=== PATIENT | male | born 1985 | race African-American/Black ===

== ENCOUNTER 2024-06-17 16:29 | Emergency (ER) | payer OTHER ==
[~2024-06-17] VITALS: Ht 185.4 cm; Wt 120.4 kg
[2024-06-17 16:30] VITALS: TEMP 98.5
[2024-06-17 17:21] LABS: BASO % 0.5 % (0.0-1.0); EOS # 0.1 10^3/uL (0.0-0.5); EOS % 1.8 % (0.0-3.0); HEMATOCRIT 39.2 % (42.0-52.0); HEMOGLOBIN 13.6 g/dl (13.5-17.5); LYMPH # 2.4 10^3/uL (1.5-5.0); LYMPH % 55.4 % (24.0-44.0); MEAN CORPUSCULAR HEMOGLOBIN 29.4 pg (27.0-33.0); MEAN CORPUSCULAR HGB CONC 34.7 g/dl (32.0-36.5); MEAN CORPUSCULAR VOLUME 84.7 fl (80.0-96.0); MONO # 0.4 10^3/uL (0.0-0.8); MONO % 9.4 % (2.0-8.0); NEUTROPHILS # 1.4 10^3/uL (1.5-8.5); NEUTROPHILS % 32.7 % (36.0-66.0); PLATELET COUNT, AUTOMATED 231 10^3/uL (150-450); RED BLOOD COUNT 4.63 10^6/uL (4.30-6.10); WHITE BLOOD COUNT 4.4 10^3/uL (4.0-10.0)
[2024-06-17 17:42] LABS: INR 1.02; PARTIAL THROMBOPLASTIN TIME 26.3 SECONDS (24.8-34.2); PROTHROMBIN TIME 13.1 SECONDS (12.5-14.5)
[2024-06-17 17:47] LABS: CK-MB VALUE MASS < 1.0 NG/ML (<3.6)
[2024-06-17 17:48] LABS: CPK CREATINE PHOSPHOKINASE 289 U/L (46-171); MB/CK RELATIVE INDEX 0.34 (< OR =4)
[2024-06-17 17:49] LABS: BLOOD UREA NITROGEN 14 MG/DL (9-23); CALCIUM LEVEL 9.3 MG/DL (8.5-10.1); CARBON DIOXIDE LEVEL 27 MMOL/L (20-31); CHLORIDE LEVEL 109 MMOL/L (98-107); CREATININE FOR GFR 1.17 MG/DL (0.70-1.30); GLOMERULAR FILTRATION RATE > 60.0 (>60); GLUCOSE, FASTING 88 MG/DL (60-100); SODIUM LEVEL 142 MMOL/L (136-145)
[2024-06-17 18:51] LABS: CK-MB VALUE MASS < 1.0 NG/ML (<3.6)
[2024-06-17 18:54] LABS: CPK CREATINE PHOSPHOKINASE 283 U/L (46-171); MB/CK RELATIVE INDEX 0.35 (< OR =4)
[2024-06-17 22:15] VITALS: BP 119/72; O2SAT 100
== END 2024-06-17 22:43 | disposition home or self-care (01) ==
LOC: M ED 16:29
DX: R07.89 Other chest pain (principal); R20.2 Paresthesia of skin; R00.8 Other abnormalities of heart beat; F10.10 Alcohol abuse, uncomplicated

== ENCOUNTER 2024-12-28 02:39 | Emergency (ER) | payer OTHER ==
[~2024-12-28] VITALS: Ht 185.4 cm; Wt 104.3 kg
[2024-12-28] MEDS ORDERED: ENTR1TAB PO (02:55)
[2024-12-28] MEDS ORDERED: CRES40TA PO (02:55)
[2024-12-28] MEDS ORDERED: JARD1TAB PO (02:55)
[2024-12-28 03:16] LABS: BASO % 0.5 % (0.0-1.0); EOS # 0.1 10^3/uL (0.0-0.5); EOS % 1.2 % (0.0-3.0); HEMATOCRIT 38.7 % (42.0-52.0); HEMOGLOBIN 13.1 g/dl (13.5-17.5); LYMPH # 2.3 10^3/uL (1.5-5.0); LYMPH % 55.4 % (24.0-44.0); MEAN CORPUSCULAR HEMOGLOBIN 30.4 pg (27.0-33.0); MEAN CORPUSCULAR HGB CONC 33.9 g/dl (32.0-36.5); MEAN CORPUSCULAR VOLUME 89.8 fl (80.0-96.0); MONO # 0.3 10^3/uL (0.0-0.8); MONO % 7.1 % (2.0-8.0); NEUTROPHILS # 1.5 10^3/uL (1.5-8.5); NEUTROPHILS % 35.8 % (36.0-66.0); PLATELET COUNT, AUTOMATED 247 10^3/uL (150-450); RED BLOOD COUNT 4.31 10^6/uL (4.30-6.10); WHITE BLOOD COUNT 4.1 10^3/uL (4.0-10.0)
[2024-12-28 03:28] LABS: INR 0.91; PROTHROMBIN TIME 12.5 SECONDS (12.5-14.5)
[2024-12-28 03:50] LABS: CK-MB VALUE MASS < 1.0 NG/ML (<3.6); LIPASE 43 U/L (12-53)
[2024-12-28 03:52] LABS: ALBUMIN 3.8 G/DL (3.2-5.2); ALKALINE PHOSPHATASE 88 U/L (40-129); ALT/SGPT 27 U/L (7.0-40); AST/SGOT 15 U/L (<34); BILIRUBIN,DIRECT < 0.1 MG/DL (<0.4); BILIRUBIN,TOTAL 0.4 MG/DL (0.3-1.2); BLOOD UREA NITROGEN 12 MG/DL (9-23); CALCIUM LEVEL 9.4 MG/DL (8.5-10.1); CARBON DIOXIDE LEVEL 29 MMOL/L (20-31); CHLORIDE LEVEL 107 MMOL/L (98-107); CREATININE FOR GFR 1.19 MG/DL (0.70-1.30); GLOMERULAR FILTRATION RATE > 60.0 (>60); GLUCOSE, FASTING 86 MG/DL (60-100); POTASSIUM SERUM 4.1 MMOL/L (3.5-5.1); SODIUM LEVEL 146 MMOL/L (136-145); TOTAL PROTEIN 7.3 G/DL (5.7-8.2)
[2024-12-28 03:54] LABS: CPK CREATINE PHOSPHOKINASE 309 U/L (46-171); MB/CK RELATIVE INDEX 0.32 (< OR =4)
[2024-12-28 06:54] LABS: D-DIMER QUANT < 0.27 ug/mL (<0.5)
[2024-12-28] MEDS ORDERED: ISOVUE-370 76% 100ML VIAL As Ordered ONE (07:28)
[2024-12-28 07:47] LABS: CK-MB VALUE MASS < 1.0 NG/ML (<3.6)
[2024-12-28 07:48] LABS: CPK CREATINE PHOSPHOKINASE 292 U/L (46-171); MB/CK RELATIVE INDEX 0.34 (< OR =4)
[2024-12-28 09:00] VITALS: BP 106/65; TEMP 97.2; O2SAT 100
== END 2024-12-28 09:38 | disposition home or self-care (01) ==
LOC: M ED 02:39
DX: R00.2 Palpitations (principal); R07.9 Chest pain, unspecified; E78.5 Hyperlipidemia, unspecified; I25.119 Atherosclerotic heart disease of native coronary artery with unspecified angina pectoris; I50.22 Chronic systolic (congestive) heart failure; Z79.84 Long term (current) use of oral hypoglycemic drugs; Z79.899 Other long term (current) drug therapy
CPT/HCPCS: 36415; 71045; 71275; 80048; 80076; 82550; 82553; 83690; 83880; 84484; 85025; 85379; 85610; 93005; 99284; Q9967

== ENCOUNTER 2025-02-02 12:29 | Emergency (ER) | payer OTHER ==
[~2025-02-02] VITALS: Ht 185.4 cm; Wt 103.4 kg
[~2025-02-02 12:29] MED LIST: CRES40TA PO; ENTR1TAB PO; JARD1TAB PO
[2025-02-02 13:32] LABS: BASO % 0.5 % (0.0-1.0); EOS # 0.1 10^3/uL (0.0-0.5); EOS % 1.4 % (0.0-3.0); HEMATOCRIT 40.6 % (42.0-52.0); HEMOGLOBIN 13.9 g/dl (13.5-17.5); LYMPH # 2.5 10^3/uL (1.5-5.0); MEAN CORPUSCULAR HEMOGLOBIN 30.3 pg (27.0-33.0); MEAN CORPUSCULAR HGB CONC 34.2 g/dl (32.0-36.5); MEAN CORPUSCULAR VOLUME 88.5 fl (80.0-96.0); MONO # 0.3 10^3/uL (0.0-0.8); MONO % 7.6 % (2.0-8.0); NEUTROPHILS # 1.3 10^3/uL (1.5-8.5); NEUTROPHILS % 31.5 % (36.0-66.0); PLATELET COUNT, AUTOMATED 210 10^3/uL (150-450); RED BLOOD COUNT 4.59 10^6/uL (4.30-6.10); WHITE BLOOD COUNT 4.2 10^3/uL (4.0-10.0)
[2025-02-02 13:54] LABS: BLOOD UREA NITROGEN 10 MG/DL (9-23); CALCIUM LEVEL 9.1 MG/DL (8.5-10.1); CARBON DIOXIDE LEVEL 29 MMOL/L (20-31); CHLORIDE LEVEL 108 MMOL/L (98-107); CK-MB VALUE MASS < 1.0 NG/ML (<3.6); CREATININE FOR GFR 1.12 MG/DL (0.70-1.30); GLOMERULAR FILTRATION RATE > 60.0 (>60); GLUCOSE, FASTING 92 MG/DL (60-100); POTASSIUM SERUM 4.3 MMOL/L (3.5-5.1); SODIUM LEVEL 144 MMOL/L (136-145)
[2025-02-02 13:55] LABS: CPK CREATINE PHOSPHOKINASE 237 U/L (46-171); MB/CK RELATIVE INDEX 0.42 (< OR =4)
[2025-02-02 15:45] VITALS: BP 110/64; TEMP 98.2; O2SAT 99
== END 2025-02-02 16:01 | disposition home or self-care (01) ==
LOC: M ED 12:29
DX: R07.89 Other chest pain (principal); Z91.198 Patient's noncompliance with other medical treatment and regimen for other reason; I50.22 Chronic systolic (congestive) heart failure; Z79.899 Other long term (current) drug therapy

== ENCOUNTER → 2025-08-19 | Outpatient (REF) | payer OTHER ==
[2025-08-19 19:15] LABS: TOTAL PROTEIN,RANDOM URINE 32.3 MG/DL (0.0-14.0)
== END ==
LOC: M LAB REF 17:18
PROVIDERS: ATTEND Internal Medicine Nephrology
DX: N18.2 Chronic kidney disease, stage 2 (mild) (principal)